=== PATIENT | male | born 1995 | race Caucasian/White ===

== ENCOUNTER 2018-01-10 06:12 | Emergency (ER) | payer MEDICAID ==
[~2018-01-10] VITALS: Ht 175.3 cm; Wt 150.0 kg
[2018-01-10 06:55] LABS: MEAN CORPUSCULAR HEMOGLOBIN 28.7 pg (27.5-34.5); MEAN CORPUSCULAR HGB CONC 34.7 g/dL (33.2-36.2); MEAN CORPUSCULAR VOLUME 82.8 fL (81-97); MEAN PLATELET VOLUME 7.7 fL (7.4-10.4); PLATELET COUNT 319 x10^3/uL (130-400); RED BLOOD COUNT 5.26 x10^6/uL (4.38-5.82); RED CELL DISTRIBUTION WIDTH 12.7 % (9.4-14.8)
[2018-01-10] MEDS ORDERED: CEFTRIAXONE 1,000 MG IM ONE (07:00)
[2018-01-10 07:07] LABS: ALBUMIN 3.2 g/dL (3.4-5.0); ANION GAP 9 mmol/L (5-15); CALCIUM 8.5 mg/dL (8.5-10.1); CHLORIDE 105 mmol/L (98-107); CREATININE 0.75 mg/dL (0.7-1.3)
[2018-01-10 07:08] LABS: ACETAMINOPHEN < 2 mcg/mL (10-30); SALICYLATE LEVEL < 1.7 mg/dL (2.8-20.0)
[2018-01-10 07:36] LABS: MD YES
[2018-01-10 07:37] LABS: <RBC MORPHOLOGY> NORMAL; BAND#(MANUAL) 0.16 x10^3/uL; BANDS%(MANUAL) 1 % (0-7); EOS#(MANUAL) 0.63 x10^3/uL (0.0-0.8); EOS% (MANUAL) 4 % (1-7); LYMPH#(MANUAL) 3.93 x10^3/uL (1-6.1); LYMPHS% (MANUAL) 25 % (22-44); MONOS#(MANUAL) 0.63 x10^3/uL (0.3-2.7); MONOS% (MANUAL) 4 % (2-9); SEG#(MANUAL) 10.36 x10^3/uL (1.8-8); SEGS% (MANUAL) 66 % (42-75)
[2018-01-10 07:38] LABS: <PLATELET ESTIMATE> ADEQUATE; <PLT MORPHOLOGY> NORMAL PLT MORPH
[2018-01-10] MEDS ORDERED: CEFTRIAXONE 1,000 MG ONE (07:48)
[2018-01-10] MEDS ORDERED: LIDOCAINE-MPF 1%, 2ML ONE (07:48)
[2018-01-10 11:20] VITALS: BP 96/57
== END 2018-01-10 16:03 | disposition home or self-care (01) ==
LOC: ED 15:55
DX: L03.115 Cellulitis of right lower limb (principal); F15.10 Other stimulant abuse, uncomplicated; F11.10 Opioid abuse, uncomplicated; F41.9 Anxiety disorder, unspecified; F32.9 Major depressive disorder, single episode, unspecified
CPT/HCPCS: 36415; 80048; 80307; 80329; 82040; 85025; 96372; 99284; J0696; G0480

== ENCOUNTER 2021-02-25 10:29 | Emergency (ER) | payer MEDICAID ==
[~2021-02-25] VITALS: Ht 175.3 cm; Wt 86.0 kg
[2021-02-25 10:32] VITALS: BP 120/73
[2021-02-25 10:58] LABS: MICROSCOPIC NOT IND
--- NOTE | 2021-02-25 12:25 | NUR ---
NO ANSWER WHEN CALLED FROM [facility]
--- NOTE | 2021-02-25 12:34 | NUR ---
NO ANSWER WHEN CALLED FROM [facility]
--- NOTE | 2021-02-25 12:52 | NUR ---
NO ANSWER WHEN CALLED FROM [facility]
== END 2021-02-25 13:00 | disposition left against medical advice (07) ==
LOC: ED 11:30
DX: R11.0 Nausea (principal); Z53.21 Procedure and treatment not carried out due to patient leaving prior to being seen by health care provider
CPT/HCPCS: 81003